=== PATIENT | male | born 1960 | race Caucasian/White ===

== ENCOUNTER → 2021-04-02 | Day surgery (SDC) | payer BC ==
[~2021-04-02] MED LIST: Ketamine 200 MG/20 ML MDV ONE; Propofol 200 MG/20 ML SDV ONE; fentaNYL 100 MCG/2 ML SDV ONE
[2021-04-02] MEDS: Lactated Ringers 1,000 ML IV SCH (10:42)
--- NOTE | 2021-04-02 11:51 | OR ---
DATE OF OPERATION: 04/02/2021 ADDENDUM: The patient does have a family history of colon cancer in his mother, and he should have every 5-year colonoscopies. ANA/SHRUTHI /[id number]
--- NOTE | 2021-04-02 11:51 | OR ---
DATE OF OPERATION: 04/02/2021 PREOPERATIVE DIAGNOSIS: HISTORY OF POLYPS. POSTOPERATIVE DIAGNOSIS: HISTORY OF POLYPS. SURGEON: Stas Yu MD PROCEDURE: FULL-LENGTH COLONOSCOPY. ANESTHESIA: MAC. COMPLICATIONS: None. SPECIMEN: None. FINDINGS: 1. Full-length colonoscopy. 2. Moderate pandiverticulosis. 3. No signs of polyp recurrence. 4. Marginal prep. RECOMMENDATIONS: Followup colonoscopy per ACS guidelines in 10 years. INDICATIONS: The patient had a small polyp removed from the rectum 5 years ago. He is in for a followup colonoscopy. DESCRIPTION OF PROCEDURE: The patient was prepped and draped, placed in the left lateral decubitus position. A lubricated Olympus colonoscope was inserted and easily advanced to the cecum. Unfortunately, the patient had a marginal prep and certainly smaller lesions may have been missed and some areas were hard to see. Visualization probably of 85% of the colon, however, was completed. Upon withdrawal, throughout the length of the colon, I could find no polyps, masses, ulceration, or bleeding sites. No vascular abnormalities or signs of colitis. The patient does have prominent diverticular disease throughout the whole length of the colon, moderate in severity. Rectal vault was benign. Retroflexion showed no anal lesions. Air was suctioned, scope removed without complication. ANA/SHRUTHI /[id number]
[2021-04-02 12:01] VITALS: BP 139/81; PULSE 61
== END ==
LOC: CC.SDS 10:29
PROVIDERS: ATTEND Family Medicine
DX: Z12.11 Encounter for screening for malignant neoplasm of colon (principal); K57.30 Diverticulosis of large intestine without perforation or abscess without bleeding; E78.5 Hyperlipidemia, unspecified; I10 Essential (primary) hypertension; Z86.010 Personal history of colon polyps; Z80.0 Family history of malignant neoplasm of digestive organs
CPT/HCPCS: 45378; J2704; J3010; J7120